=== PATIENT | male | born 1955 | race Caucasian/White ===

== ENCOUNTER → 2017-07-29 | Outpatient (REF) | payer MEDICARE ==
[~2017-07-29] MED LIST: /TIOT18INH; AMIT25TA2; AMIT75TA2; FLUTICASONE PROPIONA; HYDR25TA6; METH10TA2; MIRALEX; OXYC10TA12; PREG100CA; PREG50CA; PRIL20CA; REQU2TAB3; XOPEAER
[2017-07-29 18:11] LABS: ALBUMIN 4.1 GM/DL (3.2-5.2); ALBUMIN/GLOBULIN RATIO 1.21 (1.00-1.93); ALKALINE PHOSPHATASE 76 U/L (45-117); ALT/SGPT 21 U/L (12-78); ANION GAP 6 MEQ/L (8-16); AST/SGOT 20 U/L (15-37); BILIRUBIN,TOTAL 0.4 MG/DL (0.2-1.0); BLOOD UREA NITROGEN 12 MG/DL (7-18); CALCIUM LEVEL 9.5 MG/DL (8.8-10.2); CARBON DIOXIDE LEVEL 29 MEQ/L (21-32); CHLORIDE LEVEL 105 MEQ/L (98-107); CHOLESTEROL LEVEL 212 MG/DL (<200); CREATININE FOR GFR 0.88 MG/DL (0.70-1.30); FREE T4 1.01 NG/DL (0.76-1.46); GLOMERULAR FILTRATION RATE > 60.0 (>49); GLUCOSE, FASTING 95 MG/DL (80-110); SODIUM LEVEL 140 MEQ/L (136-145); TOTAL PROTEIN 7.5 GM/DL (6.4-8.2); TRIGLYCERIDES LEVEL 65 MG/DL (<150)
[2017-07-29 18:17] LABS: MEAN CORPUSCULAR HEMOGLOBIN 28.7 pg (27.0-33.0); MEAN CORPUSCULAR HGB CONC 33.9 g/dl (32.0-36.5); MEAN CORPUSCULAR VOLUME 84.8 fl (80.0-96.0); RED CELL DISTRIBUTION WIDTH 12.7 % (11.5-14.5); WHITE BLOOD COUNT 4.5 K/mm3 (4.0-10.0)
[2017-07-29 18:23] LABS: POTASSIUM SERUM 5.5 MEQ/L (3.5-5.1)
== END ==
LOC: M SFHCCLAY 11:17
PROVIDERS: ATTEND Family Medicine
DX: E78.00 Pure hypercholesterolemia, unspecified (principal); M54.5 Low back pain

== ENCOUNTER → 2018-01-21 | Outpatient (REF) | payer MEDICARE ==
[2018-02-02 09:11] LABS: AMPHETAMINE SCREEN, URINE Negative ng/mL (Cutoff=1000); BARBITURATES SCREEN, URINE Negative ng/mL (Cutoff=200); BENZODIAZEPINES, URINE SCREEN Negative ng/mL (Cutoff=200); CANNABINOID SCREEN, URINE Negative ng/mL (Cutoff=20); COCAINE SCREEN, URINE Negative ng/mL (Cutoff=300); CREATININE, URINE 172.2 mg/dL (20.0-300.0); METHADONE, URINE Positive (Cutoff=300); METHADONE, URINE (GC/MS) 3535 ng/mL (Cutoff=100); METHADONE, URINE SCREEN See Final Results ng/mL (Cutoff=300); OPIATE SCREEN, URINE Negative ng/mL (Cutoff=300); OXYCODONE, SCREEN, URINE Negative ng/mL (Cutoff=100); PCP SCREEN, URINE Negative ng/mL (Cutoff=25); pH, URINE 5.3 (4.5-8.9)
== END ==
LOC: M SFHCCLAY 10:38
DX: F11.90 Opioid use, unspecified, uncomplicated (principal); M54.5 Low back pain; M50.30 Other cervical disc degeneration, unspecified cervical region; Z79.899 Other long term (current) drug therapy; Z23 Encounter for immunization
CPT/HCPCS: 80307

== ENCOUNTER → 2018-06-01 | Outpatient (REF) | payer MEDICARE ==
[2018-06-01 20:10] LABS: BASO # 0.1 10^3/uL (0.0-0.2); EOS # 0.2 10^3/uL (0.0-0.50); EOS % 3.8 % (0.0-3.0); HEMATOCRIT 39.8 % (42.0-52.0); HEMOGLOBIN 12.8 g/dl (13.5-17.5); IMMATURE GRANULOCYTE % 0.8 % (0-3.0); LYMPH # 1.7 10^3/uL (1.5-4.5); LYMPH % 42.4 % (24.0-44.0); MEAN CORPUSCULAR HEMOGLOBIN 27.8 pg (27.0-33.0); MEAN CORPUSCULAR HGB CONC 32.2 g/dl (32.0-36.5); MEAN CORPUSCULAR VOLUME 86.3 fl (80.0-96.0); MONO # 0.5 10^3/uL (0.0-0.8); MONO % 12.8 % (0.0-5.0); NEUTROPHILS # 1.5 10^3/uL (1.8-7.7); NEUTROPHILS % 38.2 % (36.0-66.0); PLATELET COUNT, AUTOMATED 407 10^3/uL (150-450); RED BLOOD COUNT 4.61 10^6/uL (4.30-6.10); RED CELL DISTRIBUTION WIDTH 12.8 % (11.5-14.5)
[2018-06-01 20:18] LABS: ANION GAP 12 MEQ/L (8-16); BLOOD UREA NITROGEN 9 MG/DL (7-18); CALCIUM LEVEL 8.9 MG/DL (8.8-10.2); CARBON DIOXIDE LEVEL 25 MEQ/L (21-32); CHLORIDE LEVEL 104 MEQ/L (98-107); CREATININE FOR GFR 0.83 MG/DL (0.70-1.30); GLOMERULAR FILTRATION RATE > 60.0 (>49); GLUCOSE, FASTING 84 MG/DL (70-100); POTASSIUM SERUM 4.9 MEQ/L (3.5-5.1); SODIUM LEVEL 141 MEQ/L (136-145)
== END ==
LOC: M SFHCCLAY 10:28
DX: J40 Bronchitis, not specified as acute or chronic (principal)

== ENCOUNTER → 2018-06-01 | Outpatient (CLI) | payer MEDICARE | LOC: M CLY 10:35 | DX: J40 Bronchitis, not specified as acute or chronic (principal) | CPT/HCPCS: 80048 ==

== ENCOUNTER → 2018-10-09 | Outpatient (CLI) | payer MEDICARE | LOC: M CLY 10:28 | DX: M25.762 Osteophyte, left knee (principal); M79.605 Pain in left leg; Z23 Encounter for immunization | CPT/HCPCS: 73502; 90682 ==

== ENCOUNTER → 2019-02-15 | Outpatient (REF) | payer MEDICARE ==
[2019-02-15 17:24] LABS: HEMATOCRIT 40.5 % (42.0-52.0); HEMOGLOBIN 13.5 g/dl (13.5-17.5); MEAN CORPUSCULAR HEMOGLOBIN 28.2 pg (27.0-33.0); MEAN CORPUSCULAR HGB CONC 33.3 g/dl (32.0-36.5); MEAN CORPUSCULAR VOLUME 84.7 fl (80.0-96.0); PLATELET COUNT, AUTOMATED 243 10^3/uL (150-450); RED BLOOD COUNT 4.78 10^6/uL (4.30-6.10); WHITE BLOOD COUNT 4.5 10^3/uL (4.0-10.0)
[2019-02-15 17:33] LABS: BLOOD UREA NITROGEN 11 MG/DL (7-18); CALCIUM LEVEL 8.7 MG/DL (8.8-10.2); CARBON DIOXIDE LEVEL 29 MEQ/L (21-32); CHLORIDE LEVEL 104 MEQ/L (98-107); CHOLESTEROL LEVEL 215 MG/DL (<200); CHOLESTEROL RISK RATIO 3.115 (<5); CREATININE FOR GFR 0.87 MG/DL (0.70-1.30); GLOMERULAR FILTRATION RATE > 60.0 (>49); GLUCOSE, FASTING 82 MG/DL (70-100); HDL CHOLESTEROL 69 MG/DL (>40); LDL CHOLESTEROL 134 MG/DL (<100); NON-HDL-C 146 MG/DL; SODIUM LEVEL 138 MEQ/L (136-145); TRIGLYCERIDES LEVEL 62 MG/DL (<150)
== END ==
LOC: M SFHCCLAY 11:56
PROVIDERS: ATTEND Family Medicine
DX: E78.00 Pure hypercholesterolemia, unspecified (principal); M54.5 Low back pain; M15.0 Primary generalized (osteo)arthritis

== ENCOUNTER → 2020-03-22 | Outpatient (REF) | payer MEDICARE ==
[~2020-03-22] MED LIST changes: -/TIOT18INH; +SPIR1CAP
[2020-03-22 16:18] LABS: HEMATOCRIT 40.5 % (42.0-52.0); HEMOGLOBIN 13.3 g/dl (13.5-17.5); MEAN CORPUSCULAR HEMOGLOBIN 27.8 pg (27.0-33.0); MEAN CORPUSCULAR HGB CONC 32.8 g/dl (32.0-36.5); MEAN CORPUSCULAR VOLUME 84.7 fl (80.0-96.0); PLATELET COUNT, AUTOMATED 244 10^3/uL (150-450); RED BLOOD COUNT 4.78 10^6/uL (4.30-6.10); WHITE BLOOD COUNT 5.5 10^3/uL (4.0-10.0)
[2020-03-22 16:48] LABS: ALT/SGPT 20 U/L (12-78); BILIRUBIN,TOTAL 0.4 MG/DL (0.2-1.0); BLOOD UREA NITROGEN 13 MG/DL (7-18); CALCIUM LEVEL 9.1 MG/DL (8.8-10.2); CARBON DIOXIDE LEVEL 29 MEQ/L (21-32); CHLORIDE LEVEL 103 MEQ/L (98-107); CHOLESTEROL LEVEL 199 MG/DL (<200); CHOLESTEROL RISK RATIO 3.553 (<5); CREATININE FOR GFR 0.74 MG/DL (0.70-1.30); GLOMERULAR FILTRATION RATE > 60.0 (>49); GLUCOSE, FASTING 76 MG/DL (70-100); HDL CHOLESTEROL 56 MG/DL (>40); LDL CHOLESTEROL 117 MG/DL (<100); NON-HDL-C 143 MG/DL; POTASSIUM SERUM 4.1 MEQ/L (3.5-5.1); SODIUM LEVEL 138 MEQ/L (136-145); TRIGLYCERIDES LEVEL 131 MG/DL (<150)
== END ==
LOC: M SFHCCLAY 13:49
PROVIDERS: ATTEND Family Medicine
DX: K21.9 Gastro-esophageal reflux disease without esophagitis (principal); Z96.89 Presence of other specified functional implants; J44.9 Chronic obstructive pulmonary disease, unspecified; E78.00 Pure hypercholesterolemia, unspecified

== ENCOUNTER → 2021-01-09 | Outpatient (CLI) | payer MEDICARE ==
--- NOTE | 2021-01-09 13:13 | REP ---
INDICATION: PAIN IN RIGHT SHOULDER; DEGENERATION OF CERVICAL DISC. COMPARISON: 08/24/2015. TECHNIQUE: Seven views cervical spine. FINDINGS: There is no acute compression fracture or malalignment. There is normal cervical lordosis. There is evidence of prior anterior cervical discectomy and fusion at C3-4. Metallic hardware is unchanged in appearance. There is bony bridging at the C3-4 disc space. There is mild spurring again seen of C5. There is mild disc space narrowing and subchondral sclerosis at the C5-6 and C6-7. There is diffuse narrowing, sclerosis and spurring at the posterior facet joints. Uncovertebral spurring appears to cause some degree of neural foraminal narrowing on the right at C5-6 and C6-7, with similar findings on the left. IMPRESSION: Postsurgical and degenerative changes as discussed above, stable since 08/24/2015. <Electronically signed by Byron Louie > 01/09/21 [id number]
--- NOTE | 2021-01-09 13:14 | REP ---
INDICATION: M25.511, PAIN IN RIGHT SHOULDER COMPARISON: None. TECHNIQUE: Three views right shoulder. FINDINGS: There is no evidence of acute fracture, dislocation, or intrinsic bone disease.There is an old healed fracture of the midshaft of the right clavicle. IMPRESSION: Negative right shoulder series. Old healed fracture mid right clavicle. <Electronically signed by Byron Louie > 01/09/21 [id number]
== END ==
LOC: M CLY 12:13
PROVIDERS: ATTEND Family Medicine
DX: M50.322 Other cervical disc degeneration at C5-C6 level (principal); M50.323 Other cervical disc degeneration at C6-C7 level; M25.511 Pain in right shoulder; G89.29 Other chronic pain
CPT/HCPCS: 72050; 73030; G0463

== ENCOUNTER → 2021-03-22 | Outpatient (CLI) | payer MEDICARE ==
--- NOTE | 2021-03-22 15:19 | REP ---
INDICATION: PAIN. COMPARISON: 01/09/2021 TECHNIQUE: Internal rotation, external rotation, axillary and Y-view of the right shoulder. FINDINGS: Stable osteopenia and age-related degenerative changes are appreciated. Subacromial space measures 8.5 mm. No acute fracture or dislocation. Healed clavicle fracture noted. IMPRESSION: Stable degenerative changes. <Electronically signed by Jonas Rao > 03/22/21 1997
== END ==
LOC: M SOG 14:00
PROVIDERS: ATTEND Orthopaedic Surgery Sports Medicine
DX: M75.41 Impingement syndrome of right shoulder (principal); M19.011 Primary osteoarthritis, right shoulder

== ENCOUNTER → 2021-05-24 | Outpatient (REF) | payer MEDICARE ==
[2021-05-24 16:09] LABS: HEMATOCRIT 43.2 % (42.0-52.0); HEMOGLOBIN 14.1 g/dl (13.5-17.5); MEAN CORPUSCULAR HEMOGLOBIN 27.9 pg (27.0-33.0); MEAN CORPUSCULAR HGB CONC 32.6 g/dl (32.0-36.5); MEAN CORPUSCULAR VOLUME 85.5 fl (80.0-96.0); PLATELET COUNT, AUTOMATED 268 10^3/uL (150-450); RED BLOOD COUNT 5.05 10^6/uL (4.30-6.10); WHITE BLOOD COUNT 4.5 10^3/uL (4.0-10.0)
[2021-05-24 16:35] LABS: ALBUMIN 4.1 GM/DL (3.2-5.2); ALT/SGPT 24 U/L (12-78); BILIRUBIN,TOTAL 0.5 MG/DL (0.2-1.0); BLOOD UREA NITROGEN 11 MG/DL (7-18); CALCIUM LEVEL 9.2 MG/DL (8.8-10.2); CARBON DIOXIDE LEVEL 30 MEQ/L (21-32); CHLORIDE LEVEL 104 MEQ/L (98-107); CREATININE FOR GFR 0.77 MG/DL (0.70-1.30); GLOMERULAR FILTRATION RATE > 60.0 (>49); GLUCOSE, FASTING 89 MG/DL (70-100); POTASSIUM SERUM 4.5 MEQ/L (3.5-5.1); SODIUM LEVEL 138 MEQ/L (136-145); TOTAL PROTEIN 7.1 GM/DL (6.4-8.2)
[2021-05-29 03:08] LABS: CREATININE, URINE 202.5 mg/dL (20.0-300.0); METHADONE, URINE (GC/MS) 2135 ng/mL (Cutoff=100)
== END ==
LOC: M SFHCCLAY 12:03
PROVIDERS: ATTEND Family Medicine
DX: K21.9 Gastro-esophageal reflux disease without esophagitis (principal); G89.29 Other chronic pain; M50.30 Other cervical disc degeneration, unspecified cervical region; J44.9 Chronic obstructive pulmonary disease, unspecified; M25.511 Pain in right shoulder
CPT/HCPCS: 80053; 85027; G0463

== ENCOUNTER 2022-03-31 14:13 | Emergency (ER) | payer MEDICARE, OTHER ==
[~2022-03-31] VITALS: Ht 170.2 cm; Wt 70.5 kg
[2022-03-31] MEDS ORDERED: METH-1177 (14:26)
[2022-03-31] MEDS ORDERED: LIDOCAINE 5% (LIDODERM) PATCH TD ONE (17:15)
[2022-03-31] MEDS ORDERED: methocarbamoL 500 MG TAB PO ONE (17:20)
[2022-03-31] MEDS ORDERED: ACETAMINOPHEN 325 MG TAB PO ONE (19:15)
[2022-03-31] MEDS ORDERED: FLEET OIL RETENTION ENEMA PR PRN (19:15)
[2022-03-31 21:30] VITALS: BP 152/72
[2022-04-01] MEDS ORDERED: **NOTE PATIENT COMMENT** MISC XX ONE (05:00)
== END 2022-03-31 21:33 | disposition home or self-care (01) ==
LOC: M ED 14:13
DX: G89.29 Other chronic pain (principal); M51.36 Other intervertebral disc degeneration, lumbar region; K59.00 Constipation, unspecified; R56.9 Unspecified convulsions; F32.A Depression, unspecified; Z88.6 Allergy status to analgesic agent; Z88.8 Allergy status to other drugs, medicaments and biological substances; Z79.899 Other long term (current) drug therapy

== ENCOUNTER → 2022-04-26 | Outpatient (REF) | payer OTHER ==
[~2022-04-26] MED LIST changes: +METH-1177
[2022-04-26 15:06] LABS: HEMATOCRIT 38.5 % (42.0-52.0); HEMOGLOBIN 12.8 g/dl (13.5-17.5); MEAN CORPUSCULAR HEMOGLOBIN 28.4 pg (27.0-33.0); MEAN CORPUSCULAR HGB CONC 33.2 g/dl (32.0-36.5); MEAN CORPUSCULAR VOLUME 85.4 fl (80.0-96.0); PLATELET COUNT, AUTOMATED 260 10^3/uL (150-450); RED BLOOD COUNT 4.51 10^6/uL (4.30-6.10); WHITE BLOOD COUNT 5.1 10^3/uL (4.0-10.0)
[2022-04-26 15:37] LABS: ALBUMIN 4.1 GM/DL (3.2-5.2); ALT/SGPT 17 U/L (12-78); BILIRUBIN,TOTAL 0.5 MG/DL (0.2-1.0); BLOOD UREA NITROGEN 11 MG/DL (7-18); CALCIUM LEVEL 9.2 MG/DL (8.8-10.2); CARBON DIOXIDE LEVEL 29 MEQ/L (21-32); CHLORIDE LEVEL 104 MEQ/L (98-107); CHOLESTEROL LEVEL 177 MG/DL (<200); CHOLESTEROL RISK RATIO 2.158 (<5); CREATININE FOR GFR 0.75 MG/DL (0.70-1.30); FREE T4 0.99 NG/DL (0.76-1.46); GLOMERULAR FILTRATION RATE > 60.0 (>49); GLUCOSE, FASTING 96 MG/DL (70-100); HDL CHOLESTEROL 82 MG/DL (>40); LDL CHOLESTEROL 86 MG/DL (<100); NON-HDL-C 95 MG/DL; POTASSIUM SERUM 4.4 MEQ/L (3.5-5.1); SODIUM LEVEL 135 MEQ/L (136-145); TRIGLYCERIDES LEVEL 43 MG/DL (<150)
== END ==
LOC: M SFHCCLAY 12:23
PROVIDERS: ATTEND Family Medicine
DX: E78.00 Pure hypercholesterolemia, unspecified (principal); J44.9 Chronic obstructive pulmonary disease, unspecified

== ENCOUNTER → 2023-04-29 | Outpatient (REF) | payer OTHER ==
[2023-04-29 17:55] LABS: ALKALINE PHOSPHATASE 77 U/L (46-116); ALT/SGPT 18 U/L (7.0-40); AST/SGOT 22 U/L (<34); BILIRUBIN,TOTAL 0.5 MG/DL (0.3-1.2); BLOOD UREA NITROGEN 16 MG/DL (9-23); CALCIUM LEVEL 9.5 MG/DL (8.3-10.6); CARBON DIOXIDE LEVEL 29 MMOL/L (20-31); CHLORIDE LEVEL 103 MMOL/L (98-107); CHOLESTEROL LEVEL 180 MG/DL (<200); CHOLESTEROL RISK RATIO 2.34 (<5); CREATININE FOR GFR 0.75 MG/DL (0.70-1.30); GLOMERULAR FILTRATION RATE > 60.0 (>49); GLUCOSE, FASTING 92 MG/DL (74-106); HDL CHOLESTEROL 76.6 MG/DL (>40); LDL CHOLESTEROL 90.4 MG/DL (<100); NON-HDL-C 103.4 MG/DL; SODIUM LEVEL 138 MMOL/L (136-145); TOTAL PROTEIN 6.6 G/DL (5.7-8.2); TRIGLYCERIDES LEVEL 65 MG/DL (<150)
[2023-04-29 17:58] LABS: THYROID STIMULATING HORMONE 2.706 uIU/ML (0.55-4.78)
[2023-04-29 17:59] LABS: FREE T4 1.08 NG/DL (0.89-1.76)
== END ==
LOC: M SFHCCLAY 10:37
PROVIDERS: ATTEND Family Medicine
DX: E78.00 Pure hypercholesterolemia, unspecified (principal); J44.9 Chronic obstructive pulmonary disease, unspecified; K21.9 Gastro-esophageal reflux disease without esophagitis; G89.29 Other chronic pain; M50.30 Other cervical disc degeneration, unspecified cervical region; M25.511 Pain in right shoulder

== ENCOUNTER → 2023-10-30 | Outpatient (REF) | payer OTHER | LOC: M SFHCCLAY 12:03 | PROVIDERS: ATTEND Family Medicine | DX: Z12.11 Encounter for screening for malignant neoplasm of colon (principal) ==

== ENCOUNTER → 2024-05-07 | Outpatient (CLI) | payer OTHER | LOC: M RAD 14:35 | PROVIDERS: ATTEND Family Medicine | DX: M15.0 Primary generalized (osteo)arthritis (principal) ==

== ENCOUNTER → 2024-05-10 | Outpatient (REF) | payer OTHER ==
[2024-05-10 11:40] LABS: HEMATOCRIT 41.6 % (42.0-52.0); HEMOGLOBIN 13.5 g/dl (13.5-17.5); MEAN CORPUSCULAR HGB CONC 32.5 g/dl (32.0-36.5); MEAN CORPUSCULAR VOLUME 86.1 fl (80.0-96.0); PLATELET COUNT, AUTOMATED 255 10^3/uL (150-450); RED BLOOD COUNT 4.83 10^6/uL (4.30-6.10)
[2024-05-10 11:43] LABS: ALKALINE PHOSPHATASE 78 U/L (46-116); ALT/SGPT 19 U/L (7.0-40); AST/SGOT 17 U/L (<34); BILIRUBIN,TOTAL 0.4 MG/DL (0.3-1.2); BLOOD UREA NITROGEN 16 MG/DL (9-23); CALCIUM LEVEL 9.4 MG/DL (8.3-10.6); CARBON DIOXIDE LEVEL 32 MMOL/L (20-31); CHLORIDE LEVEL 104 MMOL/L (98-107); CHOLESTEROL LEVEL 186 MG/DL (<200); CHOLESTEROL RISK RATIO 2.36 (<5); CREATININE FOR GFR 0.74 MG/DL (0.70-1.30); GLOMERULAR FILTRATION RATE > 60.0 (>49); GLUCOSE, FASTING 96 MG/DL (74-106); HDL CHOLESTEROL 78.8 MG/DL (>40); NON-HDL-C 107.2 MG/DL; POTASSIUM SERUM 4.3 MMOL/L (3.5-5.1); SODIUM LEVEL 138 MMOL/L (136-145); TOTAL PROTEIN 6.9 G/DL (5.7-8.2); TRIGLYCERIDES LEVEL 46 MG/DL (<150)
[2024-05-10 11:45] LABS: THYROID STIMULATING HORMONE 3.891 uIU/ML (0.55-4.78)
[2024-05-10 11:46] LABS: FREE T4 1.03 NG/DL (0.89-1.76)
== END ==
LOC: M SFHCCLAY 07:13
PROVIDERS: ATTEND Family Medicine
DX: Z00.00 Encounter for general adult medical examination without abnormal findings (principal); J44.9 Chronic obstructive pulmonary disease, unspecified; E78.00 Pure hypercholesterolemia, unspecified; G89.29 Other chronic pain

== ENCOUNTER → 2024-05-18 | Outpatient (REF) | payer OTHER | LOC: M SFHCCLAY 12:23 | PROVIDERS: ATTEND Family Medicine | DX: Z20.9 Contact with and (suspected) exposure to unspecified communicable disease (principal); W57.XXXA Bitten or stung by nonvenomous insect and other nonvenomous arthropods, initial encounter; Y99.8 Other external cause status ==

== ENCOUNTER → 2024-09-07 | Outpatient (CLI) | payer OTHER | LOC: M RAD 14:55 | PROVIDERS: ATTEND Family Medicine | DX: Z87.891 Personal history of nicotine dependence (principal) ==

== ENCOUNTER 2024-11-10 10:40 | Emergency (ER) | payer OTHER ==
[~2024-11-10] VITALS: Ht 170.2 cm; Wt 63.7 kg
[2024-11-10 11:56] LABS: BASO # 0.1 10^3/uL (0.0-0.2); BASO % 1.3 % (0.0-1.0); EOS # 0.2 10^3/uL (0.0-0.5); EOS % 5.2 % (0.0-3.0); HEMATOCRIT 39.4 % (42.0-52.0); HEMOGLOBIN 13.1 g/dl (13.5-17.5); LYMPH # 1.1 10^3/uL (1.5-5.0); LYMPH % 25.6 % (24.0-44.0); MEAN CORPUSCULAR HEMOGLOBIN 28.4 pg (27.0-33.0); MEAN CORPUSCULAR HGB CONC 33.2 g/dl (32.0-36.5); MEAN CORPUSCULAR VOLUME 85.5 fl (80.0-96.0); MONO # 0.5 10^3/uL (0.0-0.8); MONO % 11.9 % (2.0-8.0); NEUTROPHILS # 2.5 10^3/uL (1.5-8.5); NEUTROPHILS % 55.8 % (36.0-66.0); PLATELET COUNT, AUTOMATED 254 10^3/uL (150-450); RED BLOOD COUNT 4.61 10^6/uL (4.30-6.10); WHITE BLOOD COUNT 4.5 10^3/uL (4.0-10.0)
[2024-11-10 12:22] LABS: LIPASE 29 U/L (12-53)
[2024-11-10 12:24] LABS: ALBUMIN 3.8 G/DL (3.2-5.2); ALKALINE PHOSPHATASE 64 U/L (40-129); ALT/SGPT 13 U/L (7.0-40); AST/SGOT 20 U/L (<34); BILIRUBIN,DIRECT 0.1 MG/DL (<0.4); BILIRUBIN,TOTAL 0.4 MG/DL (0.3-1.2); BLOOD UREA NITROGEN 15 MG/DL (9-23); CALCIUM LEVEL 10.1 MG/DL (8.3-10.6); CARBON DIOXIDE LEVEL 30 MMOL/L (20-31); CHLORIDE LEVEL 103 MMOL/L (98-107); CREATININE FOR GFR 0.68 MG/DL (0.70-1.30); GLOMERULAR FILTRATION RATE > 60.0 (>42); GLUCOSE, FASTING 91 MG/DL (74-106); POTASSIUM SERUM 4.8 MMOL/L (3.5-5.1); SODIUM LEVEL 139 MMOL/L (136-145); TOTAL PROTEIN 7.1 G/DL (5.7-8.2)
[2024-11-10] MEDS ORDERED: ISOVUE-370 76% 100ML VIAL As Ordered ONE (14:12)
[2024-11-10] MEDS: ACETAMINOPHEN 500 MG TAB PO ONE (15:55)
[2024-11-10 16:04] VITALS: BP 136/61; TEMP 96.9; O2SAT 100
== END 2024-11-10 16:36 | disposition home or self-care (01) ==
LOC: M ED 10:40
DX: K92.2 Gastrointestinal hemorrhage, unspecified (principal); K57.90 Diverticulosis of intestine, part unspecified, without perforation or abscess without bleeding; R56.9 Unspecified convulsions; M19.90 Unspecified osteoarthritis, unspecified site; R93.2 Abnormal findings on diagnostic imaging of liver and biliary tract; Z88.6 Allergy status to analgesic agent; Z88.1 Allergy status to other antibiotic agents; Z88.5 Allergy status to narcotic agent; Z88.8 Allergy status to other drugs, medicaments and biological substances
CPT/HCPCS: 74177; 80048; 80076; 83690; 85018; 85025; 99284; Q9967

== ENCOUNTER → 2024-11-17 | Outpatient (REF) | payer OTHER | LOC: M SFHCCLAY 15:25 | PROVIDERS: ATTEND Physician Assistant | DX: K62.5 Hemorrhage of anus and rectum (principal) ==

== ENCOUNTER → 2024-11-17 | Outpatient (CLI) | payer OTHER | LOC: M CLY 15:47 | PROVIDERS: ATTEND Physician Assistant | DX: M47.817 Spondylosis without myelopathy or radiculopathy, lumbosacral region (principal); M47.812 Spondylosis without myelopathy or radiculopathy, cervical region; M50.30 Other cervical disc degeneration, unspecified cervical region; M54.50 Low back pain, unspecified ==

== ENCOUNTER → 2024-11-18 | Outpatient (REF) | payer OTHER ==
[2024-11-18 12:07] LABS: BASO # 0.1 10^3/uL (0.0-0.2); BASO % 1.3 % (0.0-1.0); EOS # 0.2 10^3/uL (0.0-0.5); HEMATOCRIT 39.8 % (42.0-52.0); LYMPH # 1.1 10^3/uL (1.5-5.0); LYMPH % 27.8 % (24.0-44.0); MEAN CORPUSCULAR HEMOGLOBIN 28.6 pg (27.0-33.0); MEAN CORPUSCULAR HGB CONC 32.7 g/dl (32.0-36.5); MEAN CORPUSCULAR VOLUME 87.7 fl (80.0-96.0); MONO # 0.4 10^3/uL (0.0-0.8); MONO % 9.8 % (2.0-8.0); NEUTROPHILS # 2.2 10^3/uL (1.5-8.5); NEUTROPHILS % 56.1 % (36.0-66.0); PLATELET COUNT, AUTOMATED 247 10^3/uL (150-450); RED BLOOD COUNT 4.54 10^6/uL (4.30-6.10)
[2024-11-18 12:39] LABS: ALBUMIN 3.9 G/DL (3.2-5.2); ALKALINE PHOSPHATASE 63 U/L (40-129); ALT/SGPT 12 U/L (7.0-40); AST/SGOT 13 U/L (<34); BILIRUBIN,TOTAL 0.5 MG/DL (0.3-1.2); BLOOD UREA NITROGEN 12 MG/DL (9-23); CALCIUM LEVEL 10.1 MG/DL (8.3-10.6); CARBON DIOXIDE LEVEL 30 MMOL/L (20-31); CHLORIDE LEVEL 103 MMOL/L (98-107); CREATININE FOR GFR 0.71 MG/DL (0.70-1.30); GLOMERULAR FILTRATION RATE > 60.0 (>42); GLUCOSE, FASTING 109 MG/DL (74-106); POTASSIUM SERUM 4.9 MMOL/L (3.5-5.1); SODIUM LEVEL 142 MMOL/L (136-145)
== END ==
LOC: M SFHCCLAY 07:51
PROVIDERS: ATTEND Physician Assistant
DX: K62.5 Hemorrhage of anus and rectum (principal)

== ENCOUNTER → 2024-12-16 | Outpatient (REF) | payer OTHER | LOC: M SFHCCLAY 16:08 | PROVIDERS: ATTEND Physician Assistant | DX: R05.1 Acute cough (principal) ==

== ENCOUNTER → 2025-01-28 | Outpatient (CLI) | payer MEDICARE ==
[~2025-01-28] MED LIST changes: -METH-1177; +METH-1177 PO; +VITA100093 PO
== END ==
LOC: M CLY 11:13
PROVIDERS: ATTEND Physician Assistant
DX: J44.9 Chronic obstructive pulmonary disease, unspecified (principal)

== ENCOUNTER → 2025-01-28 | Outpatient (REF) | payer MEDICARE ==
[2025-01-28 18:25] LABS: BASO # 0.1 10^3/uL (0.0-0.2); BASO % 0.7 % (0.0-1.0); EOS # 0.1 10^3/uL (0.0-0.5); EOS % 0.7 % (0.0-3.0); HEMATOCRIT 37.5 % (42.0-52.0); HEMOGLOBIN 12.3 g/dl (13.5-17.5); LYMPH % 13.2 % (24.0-44.0); MEAN CORPUSCULAR HEMOGLOBIN 27.6 pg (27.0-33.0); MEAN CORPUSCULAR HGB CONC 32.8 g/dl (32.0-36.5); MEAN CORPUSCULAR VOLUME 84.1 fl (80.0-96.0); MONO # 0.6 10^3/uL (0.0-0.8); MONO % 8.3 % (2.0-8.0); NEUTROPHILS # 5.6 10^3/uL (1.5-8.5); PLATELET COUNT, AUTOMATED 484 10^3/uL (150-450); RED BLOOD COUNT 4.46 10^6/uL (4.30-6.10); WHITE BLOOD COUNT 7.2 10^3/uL (4.0-10.0)
[2025-01-28 18:39] LABS: ALBUMIN 3.6 G/DL (3.2-5.2); ALKALINE PHOSPHATASE 59 U/L (40-129); ALT/SGPT 14 U/L (7.0-40); AST/SGOT 15 U/L (<34); BILIRUBIN,TOTAL 0.3 MG/DL (0.3-1.2); BLOOD UREA NITROGEN 23 MG/DL (9-23); CALCIUM LEVEL 9.4 MG/DL (8.3-10.6); CARBON DIOXIDE LEVEL 27 MMOL/L (20-31); CHLORIDE LEVEL 102 MMOL/L (98-107); CREATININE FOR GFR 0.63 MG/DL (0.70-1.30); GLOMERULAR FILTRATION RATE > 60.0 (>42); GLUCOSE, FASTING 99 MG/DL (74-106); IRON (FE) 58 UG/DL (65-175); PERCENT SATURATION 18.6 % (19.7-50.0); POTASSIUM SERUM 4.5 MMOL/L (3.5-5.1); SODIUM LEVEL 138 MMOL/L (136-145); TOTAL IRON BINDING CAPACITY 311 UG/DL (250-425); TOTAL PROTEIN 7.3 G/DL (5.7-8.2)
== END ==
LOC: M SFHCCLAY 11:00
PROVIDERS: ATTEND Physician Assistant
DX: K62.5 Hemorrhage of anus and rectum (principal)

== ENCOUNTER → 2025-02-02 | Outpatient (CLI) | payer MEDICARE, OTHER | LOC: M RAD 08:29 | PROVIDERS: ATTEND Physician Assistant | DX: Z87.891 Personal history of nicotine dependence (principal) ==

== ENCOUNTER 2025-02-09 08:37 | Day surgery (SDC) | payer MEDICARE ==
[~2025-02-09] VITALS: Ht 170.2 cm; Wt 60.5 kg
[2025-02-09] MEDS ORDERED: propofoL 200 MG/20 ML VIAL As Ordered ONE (10:27)
[2025-02-09] MEDS ORDERED: LIDOCAINE 2% 100MG/5ML SDV (FOR ANES.) As Ordered ONE (10:27)
[2025-02-09] MEDS ORDERED: dexmedeTOMIDine (4MCG/ML)200MCG/50ML BTL (PRECEDEX) As Ordered ONE (10:27)
[2025-02-09] MEDS ORDERED: ePHEDrine SULFATE 25 MG/5 ML(5MG/ML) SYRINGE As Ordered ONE (10:44)
[2025-02-09 10:59] VITALS: TEMP 97.8
[2025-02-09 11:21] VITALS: BP 102/59; O2SAT 99
== END 2025-02-09 11:24 | disposition home or self-care (01) ==
LOC: M OPP 08:37
PROVIDERS: ATTEND Surgery
DX: K64.8 Other hemorrhoids (principal); K44.9 Diaphragmatic hernia without obstruction or gangrene; M19.90 Unspecified osteoarthritis, unspecified site; J44.9 Chronic obstructive pulmonary disease, unspecified; Z87.891 Personal history of nicotine dependence; Z88.5 Allergy status to narcotic agent; Z88.6 Allergy status to analgesic agent; Z88.8 Allergy status to other drugs, medicaments and biological substances; Z79.891 Long term (current) use of opiate analgesic; Z79.899 Other long term (current) drug therapy

== ENCOUNTER → 2025-02-15 | Outpatient (REF) | payer MEDICARE ==
[2025-02-15 13:53] LABS: BASO # 0.1 10^3/uL (0.0-0.2); BASO % 1.1 % (0.0-1.0); EOS # 0.2 10^3/uL (0.0-0.5); EOS % 4.3 % (0.0-3.0); HEMATOCRIT 41.4 % (42.0-52.0); HEMOGLOBIN 13.8 g/dl (13.5-17.5); LYMPH # 1.1 10^3/uL (1.5-5.0); LYMPH % 25.3 % (24.0-44.0); MEAN CORPUSCULAR HEMOGLOBIN 28.5 pg (27.0-33.0); MEAN CORPUSCULAR HGB CONC 33.3 g/dl (32.0-36.5); MEAN CORPUSCULAR VOLUME 85.5 fl (80.0-96.0); MONO # 0.6 10^3/uL (0.0-0.8); MONO % 12.3 % (2.0-8.0); NEUTROPHILS # 2.5 10^3/uL (1.5-8.5); NEUTROPHILS % 56.8 % (36.0-66.0); PLATELET COUNT, AUTOMATED 272 10^3/uL (150-450); RED BLOOD COUNT 4.84 10^6/uL (4.30-6.10); WHITE BLOOD COUNT 4.5 10^3/uL (4.0-10.0)
[2025-02-15 14:18] LABS: FERRITIN 232.3 NG/ML (10.5-307.3); PERCENT SATURATION 28.7 % (19.7-50.0)
== END ==
LOC: M SFHCCLAY 07:38
PROVIDERS: ATTEND Physician Assistant
DX: R79.89 Other specified abnormal findings of blood chemistry (principal)

== ENCOUNTER 2025-04-15 09:19 | Day surgery (SDC) | payer MEDICARE ==
[~2025-04-15] VITALS: Ht 172.7 cm; Wt 60.2 kg
[~2025-04-15 09:19] MED LIST changes: +IRON240T PO; +LIDOCAINE 2% 100MG/5ML SDV (FOR ANES.) As Ordered ONE; +TADA20TA PO; +propofoL 200 MG/20 ML VIAL As Ordered ONE
[2025-04-15 12:00] VITALS: TEMP 97.7
[2025-04-15 12:25] VITALS: BP 122/74; O2SAT 96
== END 2025-04-15 12:26 | disposition home or self-care (01) ==
LOC: M OPP 09:19
PROVIDERS: ATTEND Surgery
DX: K57.30 Diverticulosis of large intestine without perforation or abscess without bleeding (principal); K64.4 Residual hemorrhoidal skin tags; K62.5 Hemorrhage of anus and rectum; Z88.5 Allergy status to narcotic agent; Z88.6 Allergy status to analgesic agent; Z88.8 Allergy status to other drugs, medicaments and biological substances; Z79.899 Other long term (current) drug therapy

== ENCOUNTER → 2025-09-23 | Outpatient (CLI) | payer MEDICARE ==
[~2025-09-23] MED LIST changes: -LIDOCAINE 2% 100MG/5ML SDV (FOR ANES.) As Ordered ONE; -propofoL 200 MG/20 ML VIAL As Ordered ONE
== END ==
LOC: M RAD 10:05
PROVIDERS: ATTEND Physician Assistant
DX: Z87.891 Personal history of nicotine dependence (principal); R91.8 Other nonspecific abnormal finding of lung field; I70.0 Atherosclerosis of aorta

== ENCOUNTER → 2025-10-20 | Outpatient (REF) | payer MEDICARE ==
[2025-10-20 18:11] LABS: PLATELET COUNT, AUTOMATED 228 10^3/uL (150-450)
[2025-10-20 18:19] LABS: IRON (FE) 38 UG/DL (65-175); PERCENT SATURATION 11.7 % (19.7-50.0)
[2025-10-20 18:20] LABS: ALT/SGPT 11 U/L (7.0-40); AST/SGOT 16 U/L (<34); CALCIUM LEVEL 9.5 MG/DL (8.3-10.6); CARBON DIOXIDE LEVEL 29 MMOL/L (20-31); CHLORIDE LEVEL 100 MMOL/L (98-107); CHOLESTEROL LEVEL 197 MG/DL (<200); CHOLESTEROL RISK RATIO 2.93 (<5); CREATININE FOR GFR 0.81 MG/DL (0.70-1.30); GLOMERULAR FILTRATION RATE > 90.0 (>42); LDL CHOLESTEROL 119.4 MG/DL (<100); NON-HDL-C 129.8 MG/DL; POTASSIUM SERUM 4.8 MMOL/L (3.5-5.1); SODIUM LEVEL 137 MMOL/L (136-145); TRIGLYCERIDES LEVEL 52 MG/DL (<150)
[2025-10-20 18:21] LABS: PSA SCREENING 0.51 NG/ML (< 4.00)
[2025-10-20 19:06] LABS: ESTIMATED AVERAGE GLUCOSE 108.0 MG/DL (60-110)
== END ==
LOC: M SFHCCLAY 13:42
PROVIDERS: ATTEND Physician Assistant
DX: Z00.00 Encounter for general adult medical examination without abnormal findings (principal); M54.50 Low back pain, unspecified; K62.5 Hemorrhage of anus and rectum; J44.9 Chronic obstructive pulmonary disease, unspecified; D50.0 Iron deficiency anemia secondary to blood loss (chronic); Z98.1 Arthrodesis status; M50.30 Other cervical disc degeneration, unspecified cervical region; F11.90 Opioid use, unspecified, uncomplicated; N48.6 Induration penis plastica; G25.81 Restless legs syndrome; Z87.891 Personal history of nicotine dependence
CPT/HCPCS: 80053; 80061; 82728; 83036; 83550; 85027; G0103